=== PATIENT | female | born 1960 | race Caucasian/White ===

== ENCOUNTER 2016-11-02 17:46 | Emergency (ER) | payer OTHER ==
[~2016-11-02] VITALS: Ht 170.2 cm; Wt 70.2 kg
[~2016-11-02 17:46] MED LIST: ALPRAZOLAM0.25 M2; DUEXIS 800-26.1 EACH; ENDOCET 10-3251 EACH; NUCYNTA ER100 MG; ZOLPIDEM TARTRA10 MG
[2016-11-02] MEDS ORDERED: SIMVASTATIN40 MG PO (19:00)
[2016-11-02] MEDS ORDERED: EPIPEN ADU0.3 MG/0.3 IM (19:00)
[2016-11-02 21:38] VITALS: BP 128/76
== END 2016-11-02 21:39 | disposition home or self-care (01) ==
LOC: EME 17:46 → RME 17:46
PROC: 3E0234Z Introduction of Serum, Toxoid and Vaccine into Muscle, Percutaneous Approach (ICD-10-PCS; principal; 2016-11-02)
DX: Z20.3 Contact with and (suspected) exposure to rabies (principal)
CPT/HCPCS: 99281; 99284